=== PATIENT | female | born 1985 | race African-American/Black ===

== ENCOUNTER 2016-04-24 19:55 | Inpatient (IN) | payer OTHER ==
[2016-04-24] MEDS: ELECTROLYTE-148 SOLN 1,000 ML IV SCH ×2 (20:30→21:50)
[2016-04-24] MEDS ORDERED: TUBERCULIN PPD 5 TU/0.1ML SYRINGE (IN PATIENT USE ONLY) ID ONE (20:34)
[2016-04-24 20:47] LABS: BASOPHIL 0.6 % (0-2.0); EOSINOPHIL 0.1 % (0-4.5); MCH 29.6 pg (25.7-33.7); MCHC 33.4 g/dl (32.0-36.0); MEAN CELL VOLUME 88.7 fl (80-96); MEAN PLT VOLUME 8.1 fl (7.5-11.1); NEUTROPHILS 79.4 % (42.8-82.8); PLATELET COUNT 310 K/MM3 (134-434); RDW 13.3 % (11.6-15.6); WHITE BLOOD COUNT 12.6 K/mm3 (4.0-10.0)
[2016-04-24 21:18] LABS: CALCIUM 8.4 mg/dL (8.5-10.1); CREATININE 0.6 mg/dL (0.55-1.02)
[2016-04-24 21:39] LABS: INR 0.89 (0.82-1.09); PROTHROMBIN TIME (PATIENT) 9.8 SEC (9.98-11.88)
[2016-04-24 21:41] LABS: ACTIVATED PTT 27.6 SECONDS (26.9-34.4)
[2016-04-24 22:06] LABS: URIC ACID 3.9 mg/dL (2.6-7.2)
[2016-04-24] MEDS ORDERED: FENTANYL/BUPIVACAINE/NS/PF - PCEA - 50 ML DISP.SYRIN EP SCH (22:15)
--- NOTE | 2016-04-24 23:34 | HP ---
Past Medical History - Admission Chief Complaint: 33 y/o female delivered via section reason for c/ s is not known by the patient . she presented to the labor floor c/o onset of labor History of Present Illness: her antipartum care has been unremarkable . she was evaluated for a h/o hypertension one week ago she was subsequently discharge home preeclampsia was ruled out . 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: No: Alzheimer's, CVA, Dementia, Migraine, Multiple Sclerosis, Peripheral Neuropathy, Parkinson's, Seizure, Syncope, TIA, Vertigo, Other Cardiovascular: No: AFIB, Aneurysm, Aortic Insufficiency, Aortic Stenosis, CAD, CHF, Deep Vein Thrombosis, HTN, Hyperlipdemia, ME, Mitral Insufficiency, Mitral Stenosis, Murmur, Pulmonary Hypertension, Other Pulmonary: No: Asthma, Bronchitis, Cancer, COPD, O2 Dependent, Pneumonia, Previously Intubated, Pulmonary Embolus, Pulmonary Fibrosis, Sleep Apnea, Other Gastrointestinal: No: Ascites, Cancer, Constipation, Crohn's Disease, Diverticulitis, Diverticulosis, Esophageal Varices, Gastritis, GERD, GI Bleed, Hemorrhoids, Hiatal Hernia, Inflamatory Bowel Disease, Irritable Bowel Disease, Pancreatitis, Peptic Ulcer Disease, Ulcerative Colitis, Other Hepatobiliary: No: Cirrhosis, Cholelithiasis, Cholecystitis, Choledocholithiasis , Hepatitis A, Hepatitis B, Hepatitis C, Other Renal/: No: Renal Failure, Renal Inusuff, BPH, Cancer, Hematuria, Hemodialysis , Neurogenic Bladder, Renal Calculi, UTI, Other ...: 6 ...Para: 1 ...Term: 1 ...: 0 ...Spon : 1 ...Induced : 3 ...EDC by Caleb: 04/28/16 Heme/Onc: No: Anemia, B12 Deficiency, Bleeding Disorder, Cancer, Current Chemotherapy, Current Radiation Therapy, Hemochromatosis, Hypercoaguable State, Myeloproliferative Synd, Sickle Cell Disease, Sickle Cell Trait, Thrombocytopenia, Other Infectious Disease: No: AIDS, C-Diff, Herpes Zoster, HIV, MRSA, STD's, Tuberculosis, VREF, Other Psych: No: Addictions, Anxiety, Bipolar, Depression, Panic, Psychosis, Schizophrenia, Other Rheumatology: No: Fibromyalgia, Gout, Lupus, Rheumatoid Arthritis, Sarcoidosis, Vasculitis, Other Endocrine: No: Ogden's Disease, Hilmar's Disease, Diabetes Insipidus, Diabetes Mellitus, Hyperparathyroidism, Hyperthyroidism, Hypothyroidism, Osteopenia, SIADH, Other Dermatology: No: Basal Cell, Cellulitis, Eczema, Melanoma, Psoriasis, Squamous Cell, Other - Past Surgical History Past Surgical History: Yes: Hx Myomectomy: No Hx Transabdominal Cerclage: No - Smoking History Smoking history: Never smoked Have you smoked in the past 12 months: No Aproximately how many cigarettes per day: 0 - Alcohol/Substance Use Hx Alcohol Use: No - Social History History of Recent Travel: No Home Medications - Allergies Allergies/Adverse Reactions: Allergies Allergy/AdvReac Type Severity Reaction Status Date / Time No Known Allergies Allergy Verified 03/04/16 00:15 - Home Medications Home Medications: Ambulatory Orders Vit Calc,Iron,Folic [ Vitamins] 1 each PO DAILY 03/04/16 Review of Systems - Review of Systems Constitutional: denies: No Symptoms, Chills, Diaphoresis, Fever, Lethargy, Loss of Appetite, Malaise, Night Sweats, Unintentional Wgt. Loss, Weakness, Other Eyes: denies: No Symptoms, Blind Spots, Blurred Vision, Double Vision, Eye Pain , Floaters, Photophobia, Recent Change in Vision, Other HENT: denies: No Symptoms, Difficult Swallowing, Ear Discharge, Ear Pain, Epistaxis, Gingival Bleeding, Hearing Loss, Mouth Swelling, Nasal Congestion, Ocular Prosthesis, Throat Pain, Toothache, Ringing in Ears, Other Neck: denies: No Symptoms, Decreased ROM, Lumps, Pain on Movement, Stiffness, Swollen Glands, Tenderness, Other Cardiovascular: denies: No Symptoms, Chest Pain, Edema, Palpitations, Shortness of Breath, Other Respiratory: denies: No Symptoms, Cough, Exercise Intolerance, Hemoptysis, Orthopnea, PND, Snoring, SOB, SOB on Exertion, Wheezing, Other Gastrointestinal: denies: No Symptoms, Abdominal Pain, Bloating, Constipation, Diarrhea, Dysphagia, Indigestion, Melena, Nausea, Rectal Bleeding, Vomiting, Vomiting Blood, Other Genitourinary: denies: No Symptoms, Burning, Discharge, Dysuria, Flank Pain, Frequency, Hematuria, Incontinence, Lesions, Menses, Pain, Testicular Mass, Testicular Pain, Testicular Swelling, Urgency, Vaginal Bleeding, Other Breasts: denies: No Symptoms Reported, See HPI, Breast Implants, Discharge from Nipple, Lumps, Pain, Skin Changes, Other Musculoskeletal: denies: No Symptoms, Back Pain, Crepitus, Decreased ROM, Extremity Pain, Joint Pain, Joint Swelling, Muscle Pain, Muscle Cramps, Muscle Weakness, Other Neurological: denies: No Symptoms, Change in LOC, Change in Speech, Confusion, Dizziness, Headache, Incoordination, Numbness, Parasthesia, Pre-Existing Deficit , Seizure, Syncope, Tremors, Unsteady Gait, Weakness, Other Endocrine: denies: No Symptoms, Excessive Sweating, Flushing, Increased Hunger, Increased Thirst, Intolerance to Cold, Intolerance to Heat, Unexplained Weight Gain, Unexplained Weight Loss, Other Hematology/Lymphatic: denies: No Symptoms, Easily Bruised, Excessive Bleeding, Swollen Glands, Other Psychiatric: denies: No Symptoms, Altered Sleep Pattern, Anxiety, Depression, Hallucinations, Panic, Paranoia, Suicidal, Other Physical Exam - Maternity Vital Signs: Vital Signs Temperature 98.2 F 04/24/16 22:15 Pulse Rate 87 04/24/16 22:30 Respiratory Rate 18 04/24/16 22:30 Blood Pressure 142/93 04/24/16 22:30 O2 Sat by Pulse Oximetry (%) 100 04/24/16 22:30 Constitutional: Yes: Well Nourished, No Distress, Calm Eyes: Yes: WNL HENT: Yes: WNL, Atraumatic, Normocephalic Neck: Yes: WNL, Supple Cardiovascular: Yes: WNL Lungs: Normal air movement Breast(s): Yes: WNL - Abdominal Exam/OB Number of Fetuses: Single Presentation: Vertex Contractions: Yes Regularity: Regular Intensity: Moderate Monitor Mode: External Heart Rate Location: [facility] Category: I Accelerations: Uniform Decelerations: Variable - Vaginal Exam/OB Vaginal Bleediing: No Dilatation (cm): 6cm Effacement (%): complete Amniotic Membrane Status: Ruptured Amniotic Fluid: Yes: Clear Presentation: Vertex/Position Station: 0 - Physical Exam Musculoskeletal: Yes: WNL Extremities: Yes: WNL Edema: No Integumentary: Yes: WNL Deep Tendon Reflex Grade: Normal +2 ...Motor Strength: WNL Psychiatric: Yes: Alert, Oriented - Labs Lab Results: CBC, BMP 04/24/16 20:30 04/24/16 20:30 Assessment/Plan intra uterine at term h/o previous section at term reason unknown patient is admitted for vback antipartum care given by [facility] plan to assist with labor and delivery continuous monitoring labor pain management as needed. continuous maternal monitoring.
[2016-04-25 00:03] VITALS: BMI 31.2
--- NOTE | 2016-04-25 01:20 | PN ---
Progress Note, Labor Vaginal Exam #1 Labor Exam Date: 04/24/16 Labor Exam Time: 11:00 Heart Rate (range): 140 Dilatation: 6cm Effacement (%): effaced Amniotic Membrane Status: Ruptured Presentation: Vertex/Position Station: 0 Remarks: membranes was ruptured amniotic fluid is clear continue current management
--- NOTE | 2016-04-25 01:26 | PN ---
Delivery - Delivery Vaginal Delivery: V-Saurabh Type of Anesthesia: Epidural Episiotomy/Laceration: Vaginal Extension/lac, 1st degree EBL (cc): 200 (normal spontaneous vaginal delivery of living male patient apgr score 78 both maternal and condition are stable . a tight nuchal cord was sectioned over the perineum anthe infant shoulder was delivered without any complications.) Delivery, Single - Feeding Plan Initial Plan: Elected not to breastfeed exclusively throughout hospitalization
[2016-04-25] MEDS ORDERED: BENZOCAINE 28 GM HEMORRHOIDAL OINTMENT TP PRN (01:28)
[2016-04-25] MEDS ORDERED: BISACODYL 10 MG SUPP.RECT RC PRN (01:28)
[2016-04-25] MEDS ORDERED: BENZOCAINE 20% 57 GM BOTTLE TP PRN (01:28)
[2016-04-25] MEDS ORDERED: METHYLERGONOVINE MALEATE 0.2 MG/1 ML AMP IM PRN (01:28)
[2016-04-25] MEDS ORDERED: WITCH HAZEL 50% (TUCKS) 40 PAD/JAR PAD TP PRN (01:28)
[2016-04-25] MEDS ORDERED: D5W-LR W/ 20 UNITS OXYTOCIN 1,000 ML IV SCH (01:30)
[2016-04-25] MEDS: ACETAMINOPHEN 325 MG TABLET (FP) PO PRN ×4 (02:00→20:42)
[2016-04-25] MEDS: IBUPROFEN 600 MG TABLET (FP) PO PRN ×4 (02:00→20:42)
[2016-04-25] MEDS: FERROUS SO4 325 MG TABLET (FP) PO SCH ×3 (08:27→17:16)
[2016-04-25] MEDS: PRENATAL VITAMINS W/ FOLIC ACID TABLET (FP) PO SCH (09:30)
--- NOTE | 2016-04-25 10:21 | PN ---
[id number] Vital Signs: Vital Signs - 24 hr 04/24/16 04/24/16 04/24/16 20:30 22:00 22:05 Temperature 97.6 F Pulse Rate 68 85 76 Respiratory 18 18 18 Rate Blood Pressure 164/94 144/85 158/84 O2 Sat by Pulse 100 100 Oximetry (%) 04/24/16 04/24/16 04/24/16 22:10 22:15 22:30 Temperature 98.2 F Pulse Rate 80 85 87 Respiratory 18 18 18 Rate Blood Pressure 129/75 133/87 142/93 O2 Sat by Pulse 100 100 100 Oximetry (%) 04/24/16 04/24/16 04/24/16 22:45 23:00 23:15 Temperature Pulse Rate 91 H 87 91 H Respiratory 18 18 18 Rate Blood Pressure 145/97 145/91 138/109 O2 Sat by Pulse 99 100 99 Oximetry (%) 04/24/16 04/24/16 04/25/16 23:30 23:45 00:00 Temperature 97.9 F Pulse Rate 77 72 85 Respiratory 18 18 18 Rate Blood Pressure 143/83 136/86 141/82 O2 Sat by Pulse 100 100 100 Oximetry (%) 04/25/16 04/25/16 04/25/16 00:15 00:30 01:30 Temperature Pulse Rate 94 H 85 102 H Respiratory 18 18 18 Rate Blood Pressure 134/78 132/82 132/76 O2 Sat by Pulse 100 100 100 Oximetry (%) 04/25/16 04/25/16 04/25/16 01:45 02:00 02:15 Temperature 98.1 F Pulse Rate 63 90 97 H Respiratory 18 18 18 Rate Blood Pressure 120/98 142/85 135/72 O2 Sat by Pulse Oximetry (%) 04/25/16 04/25/16 03:40 06:00 Temperature 97.9 F 97.8 F Pulse Rate 83 84 Respiratory 20 20 Rate Blood Pressure 139/83 133/88 O2 Sat by Pulse Oximetry (%) Labs: Laboratory Results - last 24 hr 04/24/16 04/24/16 04/24/16 20:30 20:30 20:30 WBC 12.6 H RBC 4.54 Hgb 13.4 Hct 40.2 MCV 88.7 MCHC 33.4 RDW 13.3 Plt Count 310 MPV 8.1 Neutrophils % 79.4 Lymphocytes % 14.3 D Monocytes % 5.6 Eosinophils % 0.1 Basophils % 0.6 Retic Count INR 0.89 PTT (Actin FS) 27.6 Sodium 138 Potassium 4.1 Chloride 103 Carbon Dioxide 25 Anion Gap 10 BUN 10 Creatinine 0.6 Random Glucose 93 Uric Acid Calcium 8.4 L GGT AST ALT RPR Titer Blood Type Antibody Screen 04/24/16 04/24/16 04/24/16 20:30 20:30 21:00 WBC RBC Hgb Hct MCV MCHC RDW Plt Count MPV Neutrophils % Lymphocytes % Monocytes % Eosinophils % Basophils % Retic Count 2.17 H INR PTT (Actin FS) Sodium Potassium Chloride Carbon Dioxide Anion Gap BUN Creatinine Random Glucose Uric Acid Calcium GGT AST ALT RPR Titer Nonreactive Blood Type O POSITIVE Antibody Screen Negative 04/24/16 04/24/16 21:00 21:00 WBC RBC Hgb Hct MCV MCHC RDW Plt Count MPV Neutrophils % Lymphocytes % Monocytes % Eosinophils % Basophils % Retic Count INR PTT (Actin FS) Sodium Potassium Chloride Carbon Dioxide Anion Gap BUN Creatinine Random Glucose Uric Acid 3.9 Calcium GGT 24 AST 25 ALT 33 RPR Titer Blood Type Antibody Screen - Subjective Subjective: No Complaints - Objective Afebrile: Yes Breast: Not engorged Abdomen: Soft, Non-tender Uterus: Fundus firm Vagina: Scant lochia Extremities: Non-tender - Assessment/Plan (1) (normal spontaneous vaginal delivery) Assessment: S/P Normal Plan: Routine Care
[2016-04-26] MEDS: ACETAMINOPHEN 325 MG TABLET (FP) PO PRN ×4 (06:06→22:51)
[2016-04-26] MEDS: IBUPROFEN 600 MG TABLET (FP) PO PRN ×4 (06:07→22:50)
--- NOTE | 2016-04-26 07:03 | PN ---
Post Progress Note - Subjective Subjective: Pt seen/evaluated and doing well. Pain controlled, VB minimal, tolerating diet , no n/v. Denies F/C/HENRY/CP/SOB. Type of Delivery: Vital Signs: Vital Signs Temperature 97.8 F 04/25/16 22:00 Pulse Rate 81 04/25/16 22:00 Respiratory Rate 18 04/25/16 22:00 Blood Pressure 136/83 04/25/16 22:00 O2 Sat by Pulse Oximetry (%) 100 04/25/16 01:30 Uterus: Yes: Fundus below umbilicus Abdomen/GI: Yes: Abdomen soft, Passing flatus, Tolerating PO. No: Abdominal Distention, Tender Lochia: Yes: Rubra Lochia, amount: Small Extremities: Yes: Calves non-tender. No: Edema Perineum: Yes: Laceration Activity: Ambulating - Labs Labs: CBC WBC 12.6 K/mm3 (4.0-10.0) H 04/24/16 20:30 RBC 4.54 M/mm3 (3.60-5.2) 04/24/16 20:30 Hgb 13.4 GM/dL (10.7-15.3) 04/24/16 20:30 Hct 40.2 % (32.4-45.2) 04/24/16 20:30 MCV 88.7 fl (80-96) 04/24/16 20:30 MCHC 33.4 g/dl (32.0-36.0) 04/24/16 20:30 RDW 13.3 % (11.6-15.6) 04/24/16 20:30 Plt Count 310 K/MM3 (134-434) 04/24/16 20:30 MPV 8.1 fl (7.5-11.1) 04/24/16 20:30 Neutrophils % 79.4 % (42.8-82.8) 04/24/16 20:30 Lymphocytes % 14.3 % (8-40) D 04/24/16 20:30 Monocytes % 5.6 % (3.8-10.2) 04/24/16 20:30 Eosinophils % 0.1 % (0-4.5) 04/24/16 20:30 Basophils % 0.6 % (0-2.0) 04/24/16 20:30 Retic Count 2.17 % (0.5-1.5) H 04/24/16 21:00 Problem List - Problems (1) (normal spontaneous vaginal delivery) Code(s): O80 - ENCOUNTER FOR FULL-TERM UNCOMPLICATED DELIVERY (2) Vaginal after () Code(s): O34.21 - MATERNAL CARE FOR SCAR FROM PREVIOUS * DO NOT USE * Assessment/Plan 30 y/o PPD#1 s/p successful - AFVSS - CBC pending this a.m. - regular diet, PO pain meds, encourage ambulation - routine care, discharge home in a.m. 04/27
[2016-04-26 08:11] LABS: BASOPHIL 0.6 % (0-2.0); EOSINOPHIL 0.7 % (0-4.5); MCH 29.6 pg (25.7-33.7); MCHC 33.3 g/dl (32.0-36.0); MEAN CELL VOLUME 88.9 fl (80-96); MEAN PLT VOLUME 7.7 fl (7.5-11.1); NEUTROPHILS 65.5 % (42.8-82.8); PLATELET COUNT 250 K/MM3 (134-434); RDW 13.6 % (11.6-15.6)
[2016-04-26] MEDS: FERROUS SO4 325 MG TABLET (FP) PO SCH ×3 (08:40→17:51)
[2016-04-26] MEDS ORDERED: DIPHTH,PERTUSS(ACELL),TET 0.5 ML DISP.SYRIN IM ONE (10:00)
[2016-04-26] MEDS ORDERED: INFLUENZA VACCINE 45 MCG/0.5 ML (MDV 16-17) IM ONE (10:00)
[2016-04-26] MEDS ORDERED: INFLUENZA VACCINE 60 MCG/0.5 ML (P/F DISP.SYRIN 16-17) IM ONE (10:00)
[2016-04-26] MEDS: PRENATAL VITAMINS W/ FOLIC ACID TABLET (FP) PO SCH (10:03)
[2016-04-26] MEDS ORDERED: SENNOSIDES/DOCUSATE COMBO (SENNA PLUS) TABLET (UD) PO PRN (22:00)
[2016-04-27] MEDS: IBUPROFEN 600 MG TABLET (FP) PO PRN (03:02)
[2016-04-27] MEDS: ACETAMINOPHEN 325 MG TABLET (FP) PO PRN (03:02)
[2016-04-27] MEDS: PRENATAL VITAMINS W/ FOLIC ACID TABLET (FP) PO SCH (09:04)
[2016-04-27] MEDS: FERROUS SO4 325 MG TABLET (FP) PO SCH ×2 (09:04→13:51)
--- NOTE | 2016-04-27 11:46 | PN ---
Post Progress Note - Subjective Subjective: Pt seen/evaluated and doing well. Pain controlled, tolerating diet. VB minimal. Mildly elevated BP this a.m. No signs/sx of pre Eclampsia - denies HENRY /RUQ pain or changes/blurry vision. NO signfiicant LE edema. Type of Delivery: Vital Signs: Vital Signs Temperature 98.7 F 04/26/16 22:00 Pulse Rate 83 04/26/16 22:00 Respiratory Rate 18 04/26/16 22:00 Blood Pressure 126/74 04/26/16 22:00 O2 Sat by Pulse Oximetry (%) 100 04/25/16 01:30 Breast Exam: Yes: Soft Uterus: Yes: Fundus below umbilicus Abdomen/GI: Yes: Abdomen soft, Passing flatus, Tolerating PO. No: Tender Lochia: Yes: Rubra Lochia, amount: Small Extremities: Yes: Calves non-tender. No: Edema Perineum: Yes: Laceration (repaired) Activity: Ambulating - Labs Labs: CBC WBC 14.0 K/mm3 (4.0-10.0) H 04/26/16 07:30 RBC 3.86 M/mm3 (3.60-5.2) 04/26/16 07:30 Hgb 11.4 GM/dL (10.7-15.3) D 04/26/16 07:30 Hct 34.3 % (32.4-45.2) 04/26/16 07:30 MCV 88.9 fl (80-96) 04/26/16 07:30 MCHC 33.3 g/dl (32.0-36.0) 04/26/16 07:30 RDW 13.6 % (11.6-15.6) 04/26/16 07:30 Plt Count 250 K/MM3 (134-434) 04/26/16 07:30 MPV 7.7 fl (7.5-11.1) 04/26/16 07:30 Neutrophils % 65.5 % (42.8-82.8) 04/26/16 07:30 Lymphocytes % 27.0 % (8-40) D 04/26/16 07:30 Monocytes % 6.2 % (3.8-10.2) 04/26/16 07:30 Eosinophils % 0.7 % (0-4.5) D 04/26/16 07:30 Basophils % 0.6 % (0-2.0) 04/26/16 07:30 Retic Count 2.17 % (0.5-1.5) H 04/24/16 21:00 Haptoglobin 112 mg/dL (34-200) 04/24/16 21:00 Problem List - Problems (1) (normal spontaneous vaginal delivery) Code(s): O80 - ENCOUNTER FOR FULL-TERM UNCOMPLICATED DELIVERY (2) Vaginal after () Code(s): O34.21 - MATERNAL CARE FOR SCAR FROM PREVIOUS * DO NOT USE * (3) Gestational hypertension with significant proteinuria, delivered Code(s): O14.90 - UNSPECIFIED PRE-ECLAMPSIA, UNSPECIFIED TRIMESTER Assessment/Plan 30 y/o PPD#2 s/p successful - AFebrile - mildly elevated BPs, asymptomatic. D/C home on low dose labetalol (100mg BID ) and RTO on May 06 for BP check. - regular diet, PO pain meds, encourage ambulation - routine care, discharge home today
[2016-04-27 11:48] VITALS: PULSE 72; TEMP 98.2
[2016-04-27 11:50] VITALS: BP 147/87
== END 2016-04-27 13:50 | disposition home or self-care (01) | DRG 560 ==
LOC: JDEL 19:55 → JLDR 20:10 → J3W 04-25 03:04
PROVIDERS: ADMIT Obstetrics & Gynecology; ATTEND Obstetrics & Gynecology
PROC: 10E0XZZ Delivery of Products of Conception, External Approach (ICD-10-PCS; principal; 2016-04-25)
PROC: 0HQ9XZZ Repair Perineum Skin, External Approach (ICD-10-PCS; 2016-04-25)
DX: O34.211 Maternal care for low transverse scar from previous cesarean delivery (principal); O13.4 Gestational [pregnancy-induced] hypertension without significant proteinuria, complicating childbirth; O70.0 First degree perineal laceration during delivery; Z3A.39 39 weeks gestation of pregnancy; Z37.0 Single live birth
CPT/HCPCS: 36415; 59409; 80048; 82977; 83010; 84450; 84460; 84550; 85025; 85044; 85610; 85730; 86593; 86850; 86900; 86901; 90686; 90715; G0008